=== PATIENT | female | born 1960 | race Hispanic/Latino ===

== ENCOUNTER 2021-09-19 03:32 | Inpatient (IN) | payer BC, SELFPAY ==
[2021-09-19 04:35] LABS: #Eosinphils 0.2 thou/uL (0.0-0.7); #Lymphocytes 1.4 thou/uL (1.20-3.40); #Monocytes 0.5 thou/uL (0.11-0.59); #Neutrophils 3.5 thou/uL (1.40-6.50); %Basophils 0.3 % (0.0-1.0); %Eosinophils 3.2 % (0.0-10.0); %Lymphocytes 24.3 % (21.0-51.0); %Monocytes 9.4 % (0.0-10.0); %Neutrophils 62.8 % (42.0-75.0); Hemoglobin 12.2 g/dL (12.0-16.0); Mean Corpuscular HGB CONC 33.7 g/dL (32.0-36.0); Mean Corpuscular Hemoglobin 30.6 pg (27.0-31.0); Mean Corpuscular Volume 90.7 fL (78.0-98.0); Mean Platelet Volume 7.7 fL (7.4-10.4); Platelet Count 142 thou/uL (130-400); RBC Distribution Width 11.5 % (11.5-14.5); Red Blood Cell (RBC) Count 3.99 mill/uL (4.20-5.40); White Blood Cell (WBC) Count 5.6 thou/uL (4.8-10.8)
[2021-09-19] MEDS ORDERED: Ondansetron PF 4 MG/2 ML Vial ONE (04:48)
[2021-09-19] MEDS ORDERED: Morphine 4 MG/ML VIAL ONE (04:48)
[2021-09-19 04:51] LABS: ALT (SGPT) 15 U/L (8-55); AST (SGOT) 19 U/L (5-34); Albumin 3.9 g/dL (3.4-4.8); Alkaline Phosphatase 90 U/L (40-110); Anion Gap 13 mmol/L (10-20); BUN (Urea Nitrogen) 21 mg/dL (9.8-20.1); Bilirubin, Total 0.9 mg/dL (0.2-1.2); Calc. Creatinine Clearance 0 mL/min (70-130); Calcium 10.1 mg/dL (7.8-10.44); Carbon Dioxide 22 mmol/L (23-31); Chloride 105 mmol/L (98-107); Estimated GFR 78; Globulin 3.5 g/dL (2.4-3.5); Glucose 158 mg/dL (80-115); Lipase 53 U/L (8-78); Magnesium 1.6 mg/dL (1.6-2.6); Potassium 3.9 mmol/L (3.5-5.1); Protein, Total 7.4 g/dL (5.8-8.1); Sodium 136 mmol/L (136-145)
[2021-09-19 07:22] LABS: Bilirubin Negative (Negative); Blood, Urine Negative (Negative); Clarity Clear (Clear); Glucose, Urine (Dipstick) Normal (Negative); Ketone, Urine Negative (Negative); Leukocyte Negative Leu/uL (Negative); Nitrite Negative (Negative); Protein, Urine (Dipstick) Negative (Neg-Trace); Urobilinogen Normal mg/dL (Less than 2)
[2021-09-19] MEDS ORDERED: hydrALAZINE 20 MG/ML VIAL SLOW IVP PRN (08:22)
[2021-09-19] MEDS ORDERED: Ondansetron ODT 4 MG TAB PO PRN (08:22)
[2021-09-19] MEDS ORDERED: Morphine 4 MG/ML VIAL SLOW IVP PRN (08:22)
[2021-09-19] MEDS ORDERED: Ondansetron PF 4 MG/2 ML Vial IVP PRN (08:22)
[2021-09-19] MEDS ORDERED: HumaLOG 300 UNITS/3 ML VIAL SC PRN (10:19)
[2021-09-19] MEDS ORDERED: Dextrose 50% Abboject 50 ML SYRINGE SLOW IVP PRN (10:19)
[2021-09-19] MEDS ORDERED: Dextrose 5% in Water 1,000 ML IV PRN (10:19)
[2021-09-19] MEDS ORDERED: Iopamidol-370 76% 500 ML 1 ML ONE (11:17)
[2021-09-19] MEDS: Lactated Ringer's 1,000 ML IV SCH ×3 (12:08→20:53)
[2021-09-19] MEDS: Famotidine/PF 20 mg/2ml Vial SLOW IVP SCH ×3 (12:10→21:23)
[2021-09-19 12:12] VITALS: BMI 32.4
[2021-09-19 12:12] LABS: SARS-CoV-2 NAA Rapid Test Not Detected (NotDetected)
[2021-09-19] MEDS: Morphine 2 MG/ML VIAL SLOW IVP PRN ×2 (15:14→19:11)
[2021-09-19] MEDS: Tacrolimus 1 MG CAP PO SCH (20:53)
[2021-09-19] MEDS ORDERED: Enoxaparin Sodium 40 MG/0.4 ML SYRINGE SC SCH (21:00)
[2021-09-20] MEDS: Lactated Ringer's 1,000 ML IV SCH ×2 (04:10→06:40)
[2021-09-20 06:35] LABS: #Eosinphils 0.1 thou/uL (0.0-0.7); #Lymphocytes 1.3 thou/uL (1.20-3.40); #Monocytes 0.4 thou/uL (0.11-0.59); #Neutrophils 3.2 thou/uL (1.40-6.50); %Basophils 0.1 % (0.0-1.0); %Eosinophils 2.1 % (0.0-10.0); %Monocytes 8.7 % (0.0-10.0); %Neutrophils 63.2 % (42.0-75.0); Hemoglobin 11.9 g/dL (12.0-16.0); Mean Corpuscular HGB CONC 33.1 g/dL (32.0-36.0); Mean Corpuscular Volume 93.6 fL (78.0-98.0); Mean Platelet Volume 7.9 fL (7.4-10.4); Platelet Count 125 thou/uL (130-400); RBC Distribution Width 11.7 % (11.5-14.5); Red Blood Cell (RBC) Count 3.85 mill/uL (4.20-5.40); White Blood Cell (WBC) Count 5.1 thou/uL (4.8-10.8)
[2021-09-20 06:50] LABS: Anion Gap 12 mmol/L (10-20); BUN (Urea Nitrogen) 12 mg/dL (9.8-20.1); Calc. Creatinine Clearance 91 mL/min (70-130); Calcium 9.5 mg/dL (7.8-10.44); Carbon Dioxide 22 mmol/L (23-31); Chloride 107 mmol/L (98-107); Estimated GFR 98; Glucose 126 mg/dL (80-115); Potassium 3.7 mmol/L (3.5-5.1); Sodium 137 mmol/L (136-145)
[2021-09-20] MEDS: Famotidine/PF 20 mg/2ml Vial SLOW IVP SCH (08:30)
[2021-09-20] MEDS: Tacrolimus 1 MG CAP PO SCH (08:57)
[2021-09-20] MEDS ORDERED: Pantoprazole 40 MG VIAL IVP SCH (10:00)
[2021-09-20] MEDS ORDERED: MD-Gastroview 120 ML BOT ONE (10:55)
[2021-09-20 15:55] VITALS: BP 132/71; TEMP 97.9
[2021-09-20] MEDS ORDERED: Non-Formulary Item 1 EACH (Metformin Hcl [Metformin Hcl] 1,000 MG Tablet) PO SCH (17:00)
[2021-09-20] MEDS ORDERED: metFORMIN 500 MG TAB PO SCH (17:00)
[2021-09-20] MEDS ORDERED: Tacrolimus 1 MG CAP PO SCH (21:00)
[2021-09-21] MEDS ORDERED: Magnesium Oxide 400 MG TAB PO SCH (09:00)
[2021-09-21] MEDS ORDERED: Furosemide 20 MG TAB PO SCH (09:00)
[2021-09-21] MEDS ORDERED: Calcitriol 0.25 MCG CAP PO SCH (09:00)
[2021-09-21] MEDS ORDERED: Pantoprazole 40 MG VIAL IVP SCH (09:00)
[2021-09-21] MEDS ORDERED: Non-Formulary Item 1 EACH (Magnesium Oxide [Magnesium Oxide] 400 MG Tablet) PO SCH (09:00)
[2021-09-24 11:17] LABS: Tacrolimus 5.6 ng/mL (2.0-20.0)
== END 2021-09-20 15:55 | disposition home or self-care (01) | DRG 389 ==
LOC: ERS 03:32 → SURG A 10:01
PROVIDERS: ADMIT Specialist; ATTEND Specialist
PROC: 0D9670Z Drainage of Stomach with Drainage Device, Via Natural or Artificial Opening (ICD-10-PCS; principal; 2021-09-19)
DX: K56.50 Intestinal adhesions [bands], unspecified as to partial versus complete obstruction (principal); Z94.0 Kidney transplant status; D84.821 Immunodeficiency due to drugs; Z20.822 Contact with and (suspected) exposure to COVID-19; E11.9 Type 2 diabetes mellitus without complications; Z28.21 Immunization not carried out because of patient refusal; Z90.49 Acquired absence of other specified parts of digestive tract; Z90.5 Acquired absence of kidney; Z88.0 Allergy status to penicillin; Z79.899 Other long term (current) drug therapy; Z79.84 Long term (current) use of oral hypoglycemic drugs; Z98.890 Other specified postprocedural states; Z95.810 Presence of automatic (implantable) cardiac defibrillator
CPT/HCPCS: 36415; 36416; 71045; 74018; 74019; 74177; 74250; 80048; 80053; 80197; 81003; 83690; 83735; 84484; 85025; 93005; 96361; 96374; 96375; C9113; J1650; J2270; J2405; J7120; J7507; Q9963; Q9967; S0028

== ENCOUNTER → 2023-01-11 | Day surgery (SDC) | payer BC ==
[~2023-01-11] MED LIST: Ertapenem 1 GM VIAL ONE; Ertapenem 1 GM in Sodium Chloride 0.9% 100 ML IVPB SCH; Sodium Chloride 0.9% 100 ML ONE
[2023-01-11 13:14] VITALS: BP 144/87; TEMP 98.6
== END ==
LOC: SDC/OP 12:04
PROVIDERS: ATTEND Student in an Organized Health Care Education/Training Program
DX: A41.9 Sepsis, unspecified organism (principal); N39.0 Urinary tract infection, site not specified
CPT/HCPCS: 96365; J1335; J1642; J3490